=== PATIENT | female | born 1995 | race Caucasian/White ===

== ENCOUNTER 2018-12-08 02:18 | Emergency (ER) | payer SELFPAY ==
[~2018-12-08] VITALS: Ht 160 cm; Wt 79.0 kg
[2018-12-08 02:25] VITALS: BP 128/60; PULSE 63; RESP 20; Ht 160 cm; Wt 79.0 kg
== END 2018-12-08 03:46 | disposition left against medical advice (07) ==
LOC: FTE 02:18
DX: Z53.21 Procedure and treatment not carried out due to patient leaving prior to being seen by health care provider (principal)